=== PATIENT | female | born 1965 | race Caucasian/White ===

== ENCOUNTER 2019-08-12 14:02 | Emergency (ER) | payer MEDICAID ==
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
--- NOTE | 2019-08-12 15:07 | RADIOLOGY REPORT (SQ) ---
EXAM DESCRIPTION: ELBOW RIGHT OVER 2 VIEWS COMPLETED DATE/TIME: 08/12/2019 2:55 pm REASON FOR STUDY: PAIN TWISTED COMPARISON: None. NUMBER OF VIEWS: Four views. TECHNIQUE: AP, lateral, and both oblique radiographic images acquired of the right elbow. LIMITATIONS: None. FINDINGS: MINERALIZATION: Normal. BONES: No acute fracture or dislocation. No worrisome bone lesions. JOINT: No elbow joint effusion. SOFT TISSUES: No soft tissue swelling. No foreign body. OTHER: No other significant finding. IMPRESSION: NEGATIVE STUDY OF THE RIGHT ELBOW. NO RADIOGRAPHIC EVIDENCE OF ACUTE INJURY. TECHNICAL DOCUMENTATION: JOB ID: [id number] [employer]- All Rights Reserved Reading location - IP/workstation name: [email or web address]
--- NOTE | 2019-08-12 15:09 | RADIOLOGY REPORT (SQ) ---
EXAM DESCRIPTION: HAND LEFT 3 VIEWS COMPLETED DATE/TIME: 08/12/2019 2:55 pm REASON FOR STUDY: PAIN COMPARISON: None. EXAM PARAMETERS: NUMBER OF VIEWS: Three views. TECHNIQUE: AP, lateral and oblique radiographic images acquired of the left hand. LIMITATIONS: None. FINDINGS: MINERALIZATION: Normal. BONES: No acute fracture or dislocation. No worrisome bone lesions. JOINTS: Advanced osteoarthritis at the left 1st carpometacarpal joint with joint space narrowing and bony spurring. Trapezium bone appears to have been resected. SOFT TISSUES: 3rd and 4th fingers soft tissue swelling. No foreign body. OTHER: No other significant finding. IMPRESSION: No acute fracture or malalignment 3rd and 4th finger soft tissue swelling TECHNICAL DOCUMENTATION: JOB ID: [id number] [employer]- All Rights Reserved Reading location - IP/workstation name: [email or web address]
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
[2019-08-12] MEDS ORDERED: ACETAMINOPHEN 325 MG TABLET PO ONE (15:57)
[2019-08-12] MEDS ORDERED: IBUPROFEN 600 MG TABLET PO ONE (15:57)
[2019-08-12 16:32] VITALS: BP 164/92
== END 2019-08-12 16:23 | disposition home or self-care (01) ==
LOC: ER 14:02
DX: M79.642 Pain in left hand (principal); M79.601 Pain in right arm; M79.89 Other specified soft tissue disorders; Y04.8XXA Assault by other bodily force, initial encounter; Y92.009 Unspecified place in unspecified non-institutional (private) residence as the place of occurrence of the external cause; F32.9 Major depressive disorder, single episode, unspecified; F17.200 Nicotine dependence, unspecified, uncomplicated
CPT/HCPCS: 99284; 73080; 73130; J3490 ×2

== ENCOUNTER 2019-08-31 14:34 | Emergency (ER) | payer MEDICAID ==
[2019-08-31 14:43] VITALS: BP 154/87
[2019-08-31] MEDS ORDERED: IBUPROFEN 600 MG TABLET PO ONE (14:45)
[2019-08-31] MEDS ORDERED: ACETAMINOPHEN 325 MG TABLET PO ONE (14:45)
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
--- NOTE | 2019-08-31 15:08 | RADIOLOGY REPORT (SQ) ---
EXAM DESCRIPTION: HAND LEFT 3 VIEWS COMPLETED DATE/TIME: 08/31/2019 2:57 pm REASON FOR STUDY: hand pain; follow up on previous x-ray COMPARISON: None. EXAM PARAMETERS: NUMBER OF VIEWS: Three views. TECHNIQUE: AP, lateral and oblique radiographic images acquired of the left hand. LIMITATIONS: None. FINDINGS: MINERALIZATION: Normal. BONES: No acute fracture or dislocation. No worrisome bone lesions. JOINTS: No dislocation. Multilevel mild degenerative change with osteophytosis and subchondral scler osis at scattered interphalangeal joints and the 1st carpometacarpal joint. SOFT TISSUES: No soft tissue swelling. No foreign body. OTHER: No other significant finding. IMPRESSION: No evidence of acute bony abnormality. Mild scattered osteoarthritic change. TECHNICAL DOCUMENTATION: JOB ID: [id number] [employer]- All Rights Reserved Reading location - IP/workstation name: [email or web address]
== END 2019-08-31 15:20 | disposition home or self-care (01) ==
LOC: ER 14:34
DX: M79.642 Pain in left hand (principal)
CPT/HCPCS: 73130; J3490 ×2; 99283